=== PATIENT | female | born 1990 | race Caucasian/White ===

== ENCOUNTER 2019-07-24 07:51 | Inpatient (IN) | payer BC ==
[2019-07-24 08:31] VITALS: BMI 33.3
[2019-07-24] MEDS ORDERED: Carboprost 250 MCG/ML AMP IM PRN (09:10)
[2019-07-24] MEDS ORDERED: Ibuprofen 800 MG TAB PO PRN (09:10)
[2019-07-24] MEDS ORDERED: Misoprostol 200 MCG TAB PR PRN (09:10)
[2019-07-24] MEDS ORDERED: Butorphanol Tartrate 1 MG/ML VIAL SLOW IVP PRN (09:10)
[2019-07-24] MEDS ORDERED: Promethazine HCl 25 MG/ML VIAL IM PRN (09:10)
[2019-07-24] MEDS ORDERED: NS / Oxytocin 40 units/1000ml 1,000 ML IV PRN (09:10)
[2019-07-24] MEDS ORDERED: Lidocaine 1% (PF) 30 ML VIAL SC PRN (09:10)
[2019-07-24] MEDS ORDERED: Acetaminophen 500 MG TAB PO PRN (09:10)
[2019-07-24] MEDS ORDERED: hydrALAZINE 20 MG/ML VIAL SLOW IVP PRN (09:10)
[2019-07-24] MEDS ORDERED: Diphenoxylate HCl/Atropine Tablet PO PRN (09:10)
[2019-07-24] MEDS ORDERED: Methylergonovine 0.2 MG/ML VIAL IM PRN (09:10)
[2019-07-24] MEDS ORDERED: HYDROcodone/Acetaminophen 5/325 mg Tablet PO PRN (09:10)
[2019-07-24] MEDS ORDERED: Ondansetron PF 4 MG/2 ML Vial IVP PRN (09:10)
[2019-07-24] MEDS: Misoprostol 100 MCG TAB PO SCH ×4 (10:15→19:46)
[2019-07-24 10:16] LABS: Hemoglobin 12.5 g/dL (12.0-16.0); Mean Corpuscular HGB CONC 35.1 g/dL (32.0-36.0); Mean Corpuscular Hemoglobin 33.2 pg (27.0-31.0); Mean Corpuscular Volume 94.6 fL (78.0-98.0); Mean Platelet Volume 9.8 fL (7.4-10.4); Platelet Count 215 thou/uL (130-400); RBC Distribution Width 11.2 % (11.5-14.5); Red Blood Cell (RBC) Count 3.76 mill/uL (4.20-5.40); White Blood Cell (WBC) Count 8.8 thou/uL (4.8-10.8)
[2019-07-24] MEDS: Lactated Ringer's 1,000 ML IV SCH (10:16)
[2019-07-24 10:56] LABS: Syphilis Antibody Nonreactive (Nonreactive); Syphilis Antibody Index 0.08 S/CO (<1.00 Non-Reactive)
[2019-07-24 11:09] LABS: HIV (1/2) Antibody/Antigen Non-Reactive (NonReactive); HIV 1/2 INDEX 0.14 S/CO (<1.00); Hep B Surf Ag Non-Reactive S/CO (NonReactive)
--- NOTE | 2019-07-24 12:55 | PDOC.LDHP ---
Labor and Delivery H&P Chief complaint: loss of fluid HPI: 28 yo G1 @ 39w6d by 24 week sono who presents with LOF, gross rupture. Denies any other concerns. Antepartum course complicated by LTC, hypothyroidism and posterior placenta with anterior succenturate lobe. Current gestational age (weeks): 39 Due date: 07/25/19 Dating criteria: second trimester ultrasound Grav: 1 Para: 0 Current complications: none Abnormal US findings: Yes (posterior placenta with anterior succenturate lobe.) Past Medical History: Hypothyroidism Current medications: pre-jeff vitamins, other (Synthroid 75 mcg QD) Previous surgical history: none Allergies/Adverse Reactions: Allergies Allergy/AdvReac Type Severity Reaction Status Date / Time No Known Allergies Allergy Unverified 07/24/19 08:17 Social history: none - Physical Exam Vital signs reviewed and normal: yes General: NAD Heart: RRR Lungs: nonlabored breathing Abdomen: gravid Extremeties: no edema FHT: category 1 (130s, mod rajat, +accels, no decels) Huxley contractions every: q3min s/p cytotec #1 - Vaginal Exam cm dilated: 0 (on admisssion; cephalic ) Effacement: 0% Station: -3 - OB Labs Blood type: O RH: positive Antibody Screen: negative HIV: negative RPR: negative HEPSAg: negative 1 hour GCT: negative GBS: negative Urine drug screen: negative Rubella: immune Additional Labs: 28 yo G1 @ 39w6d PROM Hypothyroidism Posterior placenta with anterior succenturate lobe. - Plan Plan: admit to L&D, cervical ripening (PO cytotec), informed consent obtained, anesthesia consult for pain management
[2019-07-25] MEDS: Misoprostol 100 MCG TAB PO SCH (01:21)
[2019-07-25] MEDS: NS w/ Oxytocin 10 units 500 ML IV SCH (04:54)
[2019-07-25] MEDS: Lactated Ringer's 1,000 ML IV SCH ×3 (04:55→16:38)
[2019-07-25] MEDS ORDERED: Fentanyl 4 mcg/Bup 0.1% Cadd 100 ML ONE ×3 (05:02→19:21)
[2019-07-25] MEDS ORDERED: diphenhydrAMINE 50 MG/ML VIAL IVP PRN ×2 (06:08→22:43)
[2019-07-25] MEDS ORDERED: Ondansetron PF 4 MG/2 ML Vial IVP PRN ×3 (06:08→22:43)
[2019-07-25] MEDS ORDERED: Acetaminophen 325 MG TAB PO PRN ×2 (06:08→22:27)
[2019-07-25] MEDS ORDERED: Promethazine HCl 25 MG/ML VIAL IM PRN ×2 (06:08→22:43)
[2019-07-25] MEDS ORDERED: EPHEDRINE 25 MG/5 ML SYRINGE SLOW IVP PRN (06:08)
[2019-07-25] MEDS ORDERED: Lactated Ringer's 500 ML IV PRN (06:08)
[2019-07-25] MEDS ORDERED: Naloxone HCl 0.4 mg/ml Vial IVP PRN ×4 (06:08→22:43)
[2019-07-25] MEDS ORDERED: Communication Order-Pharmacy FS SCH ×2 (06:15→22:45)
[2019-07-25] MEDS ORDERED: Fentanyl 4 mcg/Bupivacaine 0.1% Cassette 100 ML EPIDURAL SCH (06:15)
--- NOTE | 2019-07-25 08:33 | PDOC.LDPN ---
Labor & Delivery Progress Note - Subjective Subjective: comfortable - Objective Vital signs reviewed and normal: yes General: NAD Uterine fundus: non tender Dilation: 1 Effacement: 75% Station: -2 FHT: category 1 (140s, mod rajat, +accels, no decele currently (pt recently had ? late decels after epidural which have resolved over the last hour)) Noel contractions every: q4 min Resuscitative measures: maternal oxygen, maternal IV fluids, maternal position change - Assessment (1) 40 weeks gestation of Code(s): Z3A.40 - 40 WEEKS GESTATION OF Current Visit: Yes Status : Acute (2) PROM (premature rupture of membranes) Code(s): O42.90 - MAHAMED ROM, 7TH0 BETW RUPT & ONST LABR, UNSP WEEKS OF GEST Current Visit: Yes Status: Acute (3) Hypothyroidism Code(s): E03.9 - HYPOTHYROIDISM, UNSPECIFIED Current Visit: Yes Status: Acute -: Fetus responded to resuscitation and now reassuring. Will restart pitocin to achieve adequate ctx (s/p cytotec x 5)
[2019-07-25] MEDS: Levothyroxine Sodium 75 MCG TAB PO SCH (08:46)
[2019-07-25] MEDS ORDERED: Lidocaine 1% PF 5 ML VIAL ONE (11:53)
[2019-07-25] MEDS ORDERED: Lidocaine 1.5%/Epinephrine 1:200,000 5 ML AMPUL IJ ONE ×2 (11:53→15:35)
--- NOTE | 2019-07-25 13:28 | PDOC.LDPN ---
Labor & Delivery Progress Note - Subjective Subjective: comfortable - Objective Vital signs reviewed and normal: yes General: NAD Uterine fundus: non tender Dilation: 4 Effacement: 90% Station: -1 FHT: category 2 (130s, mod rajat, +accels, variable decels with ctx that resolve ) Fuig contractions every: q 2 min FSE placed: yes Resuscitative measures: amniofusion, maternal position change - Assessment (1) 40 weeks gestation of Code(s): Z3A.40 - 40 WEEKS GESTATION OF Current Visit: Yes Status : Acute (2) PROM (premature rupture of membranes) Code(s): O42.90 - MAHAMED ROM, 7TH0 BETW RUPT & ONST LABR, UNSP WEEKS OF GEST Current Visit: Yes Status: Acute (3) Hypothyroidism Code(s): E03.9 - HYPOTHYROIDISM, UNSPECIFIED Current Visit: Yes Status: Acute -: Amnioinfusion started Continue to monitor Restart pitocin if needed. Internal monitors in place
[2019-07-25] MEDS ORDERED: Acetaminophen 500 MG TAB PO PRN (19:34)
--- NOTE | 2019-07-25 20:04 | PRG ---
DATE OF SERVICE: 07/25/2019 TIME OF SERVICE: 1937 hours. SUBJECTIVE: The patient is a 28-year-old primigravida at term with prolonged rupture of membranes since early a.m. of 07/23. She came in with the unfavorable cervix that responded to Cytotec. She developed category 2 tracing earlier in the afternoon, approximately 1300, and has received an IUPC. She has progressed from that point in time being 4 cm to being 8 to 9 cm by last RN exam. Of note, the patient now has a maternal temperature of 102.4, tachycardia, and mild maternal tachycardia. heart rate tracing is category 2, mostly with some variables noted. IMPRESSION: Chorioamnionitis secondary to prolonged rupture of membrane and long induction of labor with unfavorable cervix at term. PLAN: Ampicillin and gentamicin, 2 g of ampicillin q.6 hours, gentamicin 80 mg IV q.8, Tylenol 1000 p.o. q.4, IV fluids, continued induction of labor. Anticipate spontaneous vaginal delivery. Will recheck the patient at 2100 hours. If significant change has been noted, we will continue with induction of labor as long as heart rate tracing is not category 3. If non-reassuring tracing develops or no cervical changes noted in next exam, we will proceed with primary section. Job ID: [id number]
[2019-07-25] MEDS ORDERED: Azithromycin 500 MG VIAL ONE (21:11)
[2019-07-25] MEDS ORDERED: CEFAZOLIN 2 GM in Premix Bag 1 BAG IVPB SCH (21:15)
[2019-07-25] MEDS ORDERED: Bicitra 30 ML UDCUP PO SCH (21:15)
[2019-07-25] MEDS ORDERED: Azithromycin 500 MG in Sodium Chloride 0.9% 250 ML 250 ML IVPB SCH (21:15)
[2019-07-25] MEDS ORDERED: Oxytocin 10 UNITS/ML VIAL ONE ×2 (21:17→22:15)
[2019-07-25] MEDS ORDERED: Ondansetron PF 4 MG/2 ML Vial ONE (21:17)
[2019-07-25] MEDS ORDERED: Lidocaine 2% 10 ML INJ ONE ×2 (21:17→22:18)
--- NOTE | 2019-07-25 21:27 | PRG ---
DATE OF SERVICE: 07/25/2019 TIME OF SERVICE: 2109 The patient has been pushing for approximately 1 hour now. She was noted to have a small amount of anterior lip with significant amount of caput with the skull at 0 to +1 station approximately 1 hour ago with a category 1 heart rate tracing. The patient was allowed to push and has a very functional epidural for both reasonable analgesia as well as maternal effort. Over the past hour, the patient has pushed well. On exam, has really essentially no descent of the head beyond 0 to +1 station with increasing caput. Suspicion is if fetus may be occiput posterior, but whether posterior anterior seems to have cephalopelvic disproportion for this in light of her prelabor rupture of membranes. In addition, the patient has, as noted in previous note, developed chorioamnionitis. We will proceed with primary section, and we will administer Ancef 2 g and Zithromax 500 mg IV piggyback. The patient has received 80 mg of gentamicin as previously ordered for chorioamnionitis, however, pharmacy has not delivered the 2 g of ampicillin as previously ordered. Ampicillin order will be canceled. Job ID: [id number]
[2019-07-25] MEDS ORDERED: Methylergonovine 0.2 MG/ML VIAL ONE (21:50)
[2019-07-25] MEDS ORDERED: MORPHINE 5 MG/10 ML PF VIAL ONE (21:52)
[2019-07-25] MEDS ORDERED: Fentanyl 100 MCG/2 ML VIAL ONE ×2 (21:56→22:15)
[2019-07-25] MEDS ORDERED: Gentamicin Sulfate 80 MG in Premix Bag 1 BAG IVPB SCH (22:00)
[2019-07-25 22:10] LABS: Actual Bicarbonate (HCO3a) 17.7 mEq/L (22-28); Base Excess (BEa) -11.5 mEq/L (-2.0 to +3.0)
[2019-07-25] MEDS ORDERED: Midazolam HCl 2 mg/2 ml Vial ONE (22:10)
[2019-07-25 22:12] LABS: Actual Bicarbonate (HCO3v) 18 mEq/L (22-28); Base Excess -8.9 mEq/L (-2.0 to +3.0)
[2019-07-25] MEDS ORDERED: Meperidine HCl/PF 25 MG/ML VIAL IM PRN (22:27)
[2019-07-25] MEDS ORDERED: Lanolin Ointment 7 GM TUBE TOP PRN (22:27)
[2019-07-25] MEDS ORDERED: Zolpidem Tartrate 5 MG TAB PO PRN (22:27)
[2019-07-25] MEDS ORDERED: diphenhydrAMINE 25 MG CAP PO PRN (22:27)
[2019-07-25] MEDS ORDERED: hydrALAZINE 20 MG/ML VIAL SLOW IVP PRN (22:27)
[2019-07-25] MEDS ORDERED: Naloxone HCl 0.4 mg/ml Vial IV PRN (22:43)
[2019-07-25] MEDS ORDERED: Promethazine HCl 25 MG SUPP PR PRN (22:43)
[2019-07-25] MEDS ORDERED: Ketorolac Tromethamine 30 MG/ML VIAL IVP PRN (22:43)
[2019-07-25] MEDS ORDERED: HYDROmorphone 2 MG/ML VIAL SLOW IVP PRN (22:44)
[2019-07-25] MEDS ORDERED: Meperidine HCl/PF 25 MG/ML VIAL SLOW IVP PRN (22:44)
[2019-07-25] MEDS ORDERED: Ondansetron HCl/PF 4 MG/2 ML Vial IVP PRN (22:44)
[2019-07-25] MEDS ORDERED: L&D-Morphine 4 MG/ML VIAL SLOW IVP PRN (22:44)
[2019-07-25] MEDS ORDERED: Ketorolac Tromethamine 30 MG/ML VIAL IVP SCH (22:45)
--- NOTE | 2019-07-25 23:47 | OP ---
DATE OF PROCEDURE: 07/25/2019 PREOPERATIVE DIAGNOSES: Forty weeks gestation, prolonged rupture of membranes, chorioamnionitis, and deep pelvic arrest. POSTOPERATIVE DIAGNOSES: Forty weeks gestation, prolonged rupture of membranes, chorioamnionitis, and deep pelvic arrest plus right cervical extension. PROCEDURE: Low-transverse section with right cervical extension. PHYS ASST: Hal Hooper MD. ANESTHESIOLOGIST: Arie Ocampo MD. ANESTHESIA: Epidural. MEDICATIONS: 2 g Ancef and 500 of Zithromax preoperatively. OPERATIVE FINDINGS: 1. ROT position, male infant, deep transverse arrest, weight and Apgars pending to nursery. Cord gas pending. 2. Placenta grossly normal appearing. Cultures obtained and sent. 3. Low transverse hysterotomy incision made with extension into right cervical region and broad ligament secondary to deep pelvic arrest. 4. Hemostasis, clear urine. COUNTS: Correct counts at the end of the procedure. DISPOSITION: Recovery room in good condition. DESCRIPTION OF PROCEDURE: After obtaining appropriate informed consent, the patient was taken to the operating room, where epidural was dosed up to an appropriate level. A Pfannenstiel skin incision was made and carried down the fascia, extended superiorly and laterally with curved Justice scissors. Rectus was dissected off sharply superiorly and inferiorly, divided in the midline. Peritoneum entered bluntly. Philip O retractor placed inside. Lower uterine segment, vesicouterine peritoneal reflection all were easily identified and a low-transverse hysterotomy made and extended with finger Fractionization. Mold Shaker's hand was placed in the vagina which revealed the to be in deep. The infant was delivered. Cord clamped and cut, and handed off to the nursery in attendance. Usual cord blood sample was obtained. Cord gas obtained. Placenta removed manually. The patient had a large amount of bowel pushing throughout the case. It was packed all the way with moist laparotomy sponge. Hysterotomy was noted to be with extension into the broad ligament and down to the level of cervix on the patient's right. Mold Shaker changed from the right side to the left side for better visualization. I reached what was appeared to be the apex and closed it using a running continuous locking Monocryl suture from the right to the left. After initial closure and having tagged the right distal end, suction irrigation revealed that the right cervical extension extended approximately 2 cm lower. This was closed using a 2nd layer of Monocryl and then running back up over the initial hysterotomy closure. Suction irrigation was carried out and inspection revealed no further extension on that side. There was a window in the broad ligament on the right. No large areas of bleeding were noted in it. FloSeal was placed and then pressure held for 3 minutes. Good hemostasis was noted and then the wound over the broad ligament was reapproximated using a running continuous 0-chromic suture. Posteriorly inspection was carried out and no areas of bleeding posteriorly at the level of the broad ligament were noted. Reinspection of the hysterotomy after suction and irrigation revealed it to be dry. The Philip O retractor was removed. The rectus was reapproximated using an 0-chromic suture proceeding to fascial closure. The fascia was then reapproximated after ensuring that the rectus was dry using a running continuous 0 PDS suture. Subcutaneous tissue irrigated, rendered hemostatic with Bovie cautery, reapproximated using a 2-0 plain gut. Skin reapproximated with bruce. The patient was taken to recovery room in good condition. Job ID: [id number]
[2019-07-25] MEDS ORDERED: Ampicillin 2 GM in Sodium Chloride 0.9% 100 ML IVPB SCH (23:59)
[2019-07-26] MEDS ORDERED: Meperidine HCl/PF 25 MG/ML VIAL ONE (00:03)
[2019-07-26] MEDS ORDERED: Promethazine HCl 25 MG/ML VIAL ONE (00:03)
[2019-07-26] MEDS: Misoprostol 100 MCG TAB PO SCH ×4 (02:21→02:24)
[2019-07-26] MEDS: Lactated Ringer's 1,000 ML IV SCH (02:26)
[2019-07-26 05:35] LABS: pH (Cord, venous) 7.24 (7.32-7.43)
[2019-07-26 05:59] LABS: Hemoglobin 10.1 g/dL (12.0-16.0); Mean Corpuscular HGB CONC 32.6 g/dL (32.0-36.0); Mean Platelet Volume 9.3 fL (7.4-10.4); Platelet Count 179 thou/uL (130-400); Red Blood Cell (RBC) Count 3.26 mill/uL (4.20-5.40)
[2019-07-26] MEDS ORDERED: Ibuprofen 800 MG TAB PO SCH (06:00)
[2019-07-26] MEDS: Levothyroxine Sodium 75 MCG TAB PO SCH (06:01)
--- NOTE | 2019-07-26 07:35 | PRG ---
DATE OF SERVICE: 07/26/2019 TIME OF SERVICE: 0700 hours. SUBJECTIVE: The patient is resting comfortably. She has no complaints. The was 7 pounds 1 ounce with Apgars of 1 and 8. OBJECTIVE: VITAL SIGNS: Temperature 98.9, T-max postoperatively 99.0, pulse 61, respirations 18, blood pressure 105/65. Urine output is 1200 mL postoperatively. QBL was 895 mL. LUNGS: Clear to auscultation bilaterally. HEART: Regular rhythm. ABDOMEN: Soft and nontender. Her dressing is dry. She has normal lochia. No CVA tenderness. EXTREMITIES: No clubbing, cyanosis, or edema. LABORATORY DATA: Hematocrit went from 35% to 31% postoperatively. IMPRESSION: Postoperative day #1 from a section with right cervical extension with development of chorioamnionitis immediately prior to section after prolonged rupture of membranes and induction. PLAN: We will not re-dose antibiotics unless febrile morbidity develops. Routine post care. Job ID: [id number]
[2019-07-26] MEDS ORDERED: Adacel (T-DAP) 0.5 ML SYRINGE IM ONE (09:00)
--- NOTE | 2019-07-26 09:04 | PDOC.PP ---
Post Progress Note Post Day #: 1 Subjective: Pt overall doing well this morning. She has not yet ambulated and [place] is still in place. Denies any subjective fevers and pain is moderate and improved with meds. Lochia moderate-minimal. Breast feeding. PO intake tolerated: yes Flatus: no Ambulation: no Vital Signs (12 hours) Temp Pulse Resp BP Pulse Ox 07/26/19 08:00 98.3 F 63 16 101/54 L 97 07/26/19 04:45 98.9 F 61 18 105/65 07/26/19 01:35 98.4 F 80 18 125/60 99 07/26/19 00:40 99.0 F 78 18 128/70 99 Weight Weight 200 lb - Physical Examination General: NAD Cardiovascular: RRR Respiratory: non-labored breathing Abdominal: no distention, appropriately TTP Fundus firm & at: below umbilicus Extremities: negative homans (B) Deviation from normal: Dressing c/d/i Neurological: no gross focal deficits Psychiatric: A&Ox3, normal affect Result Diagrams: 07/26/19 05:41 Additional Labs: Post Labs Blood Type O POSITIVE 07/24/19 10:59 Hep Bs Antigen Non-Reactive S/CO (NonReactive) 07/24/19 10:05 (1) 40 weeks gestation of Code(s): Z3A.40 - 40 WEEKS GESTATION OF Status: Resolved (2) PROM (premature rupture of membranes) Code(s): O42.90 - MAHAMED ROM, 7TH0 BETW RUPT & ONST LABR, UNSP WEEKS OF GEST Status: Resolved (3) Hypothyroidism Code(s): E03.9 - HYPOTHYROIDISM, UNSPECIFIED Status: Acute (4) delivery delivered Code(s): O82 - ENCOUNTER FOR DELIVERY WITHOUT INDICATION Status: Acute (5) Chorioamnionitis Code(s): O41.1290 - CHORIOAMNIONITIS, UNSP TRIMESTER, NOT APPLICABLE OR UNSP Status: Acute - Assessment/Plan PPD2 VSSAF= afebrile since delivery Pt did not receive clindamycin Post op- plan to continue gentamycin and clindamycin until 24 hours after delivery due to high risk of endometritis due to prolonged ROM and chorioamnionitis prior to toshia. Continue post operative care
[2019-07-26] MEDS: Prenatal Vitamin 1 TAB PO SCH (09:21)
[2019-07-26] MEDS: Docusate Calcium (SURFAK) 240 MG CAP PO SCH ×2 (09:21→20:59)
[2019-07-26] MEDS: Clindamycin/D5W 900 MG in Premix Bag 1 BAG IVPB SCH ×2 (09:30→18:12)
[2019-07-26] MEDS ORDERED: HYDROcodone/Acetaminophen 5/325 mg Tablet PO PRN ×3 (11:50→19:00)
[2019-07-26] MEDS: HYDROcodone/Acetaminophen 5/325 mg Tablet PO PRN ×3 (13:44→22:34)
[2019-07-26] MEDS: Ibuprofen 800 MG TAB PO SCH ×2 (13:47→20:59)
[2019-07-27] MEDS: Clindamycin/D5W 900 MG in Premix Bag 1 BAG IVPB SCH ×3 (02:04→17:45)
[2019-07-27] MEDS: Lactated Ringer's 1,000 ML IV SCH ×6 (02:30→21:38)
[2019-07-27] MEDS: Levothyroxine Sodium 75 MCG TAB PO SCH (06:03)
[2019-07-27] MEDS: Ibuprofen 800 MG TAB PO SCH ×3 (06:03→21:35)
[2019-07-27] MEDS: Simethicone Chewable 80 MG TAB PO PRN ×2 (06:03→09:42)
--- NOTE | 2019-07-27 06:24 | PDOC.PP ---
Post Progress Note Post Day #: 2 Subjective: Doing well and was BF when I entered the rooo PO intake tolerated: yes Flatus: yes Ambulation: yes Vital Signs (12 hours) Temp Pulse Resp BP Pulse Ox 07/27/19 04:45 98.7 F 69 18 103/58 L 07/26/19 23:30 98.1 F 82 18 122/68 98 07/26/19 20:10 97.5 F L 78 17 98/57 L 97 07/26/19 19:32 97.5 F L 78 17 98/57 L 97 Weight Weight 200 lb - Physical Examination General: NAD Respiratory: non-labored breathing Abdominal: no distention, appropriately TTP Skin: CS incision dry & intact ([place] in place), no rash Neurological: no gross focal deficits Psychiatric: A&Ox3, normal affect Result Diagrams: 07/26/19 05:41 Additional Labs: Post Labs Blood Type O POSITIVE 07/24/19 10:59 Hep Bs Antigen Non-Reactive S/CO (NonReactive) 07/24/19 10:05 (1) delivery delivered Code(s): O82 - ENCOUNTER FOR DELIVERY WITHOUT INDICATION Status: Acute - Assessment/Plan Plan: PPD2 doing well. Off ABX now and afebrile. Will watch temps today due to prolonged labor course and CS. Likely home in AM tomorrow
[2019-07-27] MEDS: NS w/ Oxytocin 10 units 500 ML IV SCH (06:31)
[2019-07-27] MEDS: Misoprostol 100 MCG TAB PO SCH ×6 (06:32→21:14)
[2019-07-27] MEDS: Prenatal Vitamin 1 TAB PO SCH (09:37)
[2019-07-27] MEDS: Docusate Calcium (SURFAK) 240 MG CAP PO SCH ×2 (09:37→21:35)
[2019-07-27] MEDS: HYDROcodone/Acetaminophen 5/325 mg Tablet PO PRN ×3 (09:42→17:53)
[2019-07-28] MEDS: Lactated Ringer's 1,000 ML IV SCH ×2 (00:02→06:31)
[2019-07-28] MEDS: Misoprostol 100 MCG TAB PO SCH ×3 (03:52→08:50)
[2019-07-28] MEDS: NS w/ Oxytocin 10 units 500 ML IV SCH (03:52)
[2019-07-28] MEDS: Clindamycin/D5W 900 MG in Premix Bag 1 BAG IVPB SCH (03:55)
[2019-07-28] MEDS: Levothyroxine Sodium 75 MCG TAB PO SCH (06:00)
[2019-07-28] MEDS: Ibuprofen 800 MG TAB PO SCH ×2 (06:01→14:18)
--- NOTE | 2019-07-28 07:23 | PRG ---
DATE OF SERVICE: 07/28/2019 TIME OF SERVICE: 0650 hours. SUBJECTIVE: The patient is resting comfortably. She is postoperative day #2 plus. OBJECTIVE: VITAL SIGNS: T-max is 98.8, respirations 18, temperature now 98.0, pulse 82, blood pressure 122/60. HEENT: Within normal limits. LUNGS: Clear to auscultation bilaterally. HEART: Regular rate and rhythm. ABDOMEN: Soft and nontender. Her incision is intact and dry. No erythema. EXTREMITIES: Without clubbing, cyanosis, or edema. IMPRESSION: Doing well, 2 plus days status post primary low-transverse section with left-sided extension. PLAN: Discontinue antibiotics if afebrile at noon. Discharge home. Discontinue medications, [place] and ibuprofen. Follow up next Monday at [facility]'s [place] for staple removal. Job ID: [id number]
[2019-07-28] MEDS: Docusate Calcium (SURFAK) 240 MG CAP PO SCH (09:42)
[2019-07-28] MEDS: Prenatal Vitamin 1 TAB PO SCH (09:42)
[2019-07-28] MEDS: HYDROcodone/Acetaminophen 5/325 mg Tablet PO PRN ×2 (09:45→14:17)
[2019-07-28 12:05] VITALS: BP 126/77; TEMP 98.3
== END 2019-07-28 14:33 | disposition home or self-care (01) | DRG 786 ==
LOC: L&D/OP 07:51 → L&D 09:15 → 3SW 07-26 01:11
PROVIDERS: ADMIT Obstetrics & Gynecology; ATTEND Obstetrics & Gynecology
PROC: 3E0E7GC Introduction of Other Therapeutic Substance into Products of Conception, Via Natural or Artificial Opening (ICD-10-PCS; 2019-07-24)
PROC: 10D00Z1 Extraction of Products of Conception, Low, Open Approach (ICD-10-PCS; principal; 2019-07-25)
DX: O42.92 Full-term premature rupture of membranes, unspecified as to length of time between rupture and onset of labor (principal); O41.1230 Chorioamnionitis, third trimester, not applicable or unspecified; O63.9 Long labor, unspecified; O99.284 Endocrine, nutritional and metabolic diseases complicating childbirth; E03.9 Hypothyroidism, unspecified; O33.9 Maternal care for disproportion, unspecified; Z3A.39 39 weeks gestation of pregnancy; Z37.0 Single live birth; O43.193 Other malformation of placenta, third trimester
CPT/HCPCS: 36415; 51702; 82805; 85027; 86780; 86850; 86900; 86901; 87340; 87389; 88307; J0456; J0690; J1580; J1885; J2001; J2175; J2210; J2250; J2274; J2405; J2550; J2590; J3010; J3490